=== PATIENT | female | born 1990 | race American Indian/Alaskan Native ===

== ENCOUNTER 2020-11-22 09:10 | Inpatient (IN) | payer MEDICAID ==
[2020-11-22] MEDS ORDERED: NALOXONE 0.4 MG/1 ML INJ IV PRN (09:56)
[2020-11-22] MEDS ORDERED: ePHEDrine SULFATE 50 MG/1 ML INJ IV PRN ×2 (09:56→21:08)
[2020-11-22] MEDS ORDERED: BUTORPHANOL 2 MG/1 ML INJ IV PRN ×2 (09:56)
[2020-11-22] MEDS ORDERED: LIDOCAINE (2%) 20 MG/1 ML VIAL 20 ML MDV INFILTRATI ONE (09:56)
[2020-11-22] MEDS ORDERED: PROMETHAZINE 25 MG TAB PO PRN (09:56)
[2020-11-22] MEDS ORDERED: fentaNYL 100 MCG/2 ML INJ IV PRN (09:56)
[2020-11-22] MEDS ORDERED: ONDANSETRON 4 MG/2 ML INJ IV PRN (09:56)
[2020-11-22] MEDS ORDERED: TERBUTALINE 1 MG/1 ML INJ SUB-Q PRN (09:56)
[2020-11-22] MEDS ORDERED: MINERAL OIL 30 ML ORAL LIQD PO PRN (09:56)
[2020-11-22] MEDS ORDERED: OXYTOCIN DRIP 30 UNITS/500 ML BAG IV SCH ×2 (10:00)
[2020-11-22] MEDS ORDERED: AMPICILLIN/NS 2 GM/100 ML 2 GM/100 ML BAG IV ONE (10:00)
[2020-11-22] MEDS ORDERED: miSOPROStol 25 MCG TAB VG ONE (10:56)
[2020-11-22] MEDS: LACTATED RINGERS 1,000 ML IV SCH ×2 (11:50→16:42)
[2020-11-22 11:59] LABS: Hematocrit 32.4 % (30.3-42.9); Hemoglobin 10.8 gm/dl (10.1-14.3); Mean Corpuscular HGB Conc 33 % (30-34); Mean Corpuscular Volume 88 fl (79-97); Platelet Count 230 K/mm3 (140-440); Red Blood Count 3.69 M/mm3 (3.65-5.03); Red Cell Distribution Width 14.1 % (13.2-15.2)
--- NOTE | 2020-11-22 13:43 | History and Physical Report ---
History of Present Illness Date of examination: 11/22/20 Date of admission: 11/22/20 09:10 Chief complaint: Induction for post dates History of present illness: 30 yo at 41w0d EGA who presents for induction of labor for post dates. She denies regular contractions, leakage of fluid or vaginal bleeding. She endorses good movement. She received care from [facility]. Her course is uncomplicated. She is GBS positive. Past History Past Medical History: no pertinent history Past Surgical History: no surgical history Family/Genetic History: diabetes - Obstetrical History Expected Date of Delivery: 11/15/20 Actual Gestation: 41 Week(s) 0 Day(s) : 3 Para: 1 Hx # Term Pregnancies: 1 Number of Pregnancies: 0 Spontaneous Abortions: 0 Induced : 1 Number of Living Children: 1 Medications and Allergies Allergies Allergy/AdvReac Type Severity Reaction Status Date / Time No Known Allergies Allergy Verified 11/04/13 12:10 Home Medications Medication Instructions Recorded Confirmed Last Taken Type Acetaminophen [Tylenol] 1,000 mg PO Q6HR PRN 11/23/13 11/23/13 11/22/13 10:00 History 1000 Lidocain2.5%/Prilocai2.5% [Emla] 5 gm TP ONCE #1 tube 11/23/13 Unknown Rx Pnv,Calcium 72/Iron,Carb/Folic 1 tab PO DAILY 11/23/13 11/23/13 11/21/13 14:00 History [ Plus Iron Tablet] 1 Active Meds: Active Medications Butorphanol Tartrate (Butorphanol 2 Mg/1 Ml Inj) 1 mg IV Q2H PRN PRN Reason: Pain, Moderate(4-6) LABOR PAIN Butorphanol Tartrate (Butorphanol 2 Mg/1 Ml Inj) 2 mg IV Q2H PRN PRN Reason: Pain , Severe (7-10) Ephedrine Sulfate (Ephedrine Sulfate 50 Mg/1 Ml Inj) 10 mg IV Q2M PRN PRN Reason: Hypotension Fentanyl (Fentanyl 100 Mcg/2 Ml Inj) 100 mcg IV Q2H PRN PRN Reason: Pain,Severe (7-10) LABOR PAIN Oxytocin/Sodium Chloride (Pitocin/Ns 30 Unit/500ml) 30 units in 500 mls @ 2 mls/hr IV TITR LUCINDA; Protocol Lactated Ringer's (Lactated Ringers) 1,000 mls @ 125 mls/hr IV DIRECT LUCINDA Last Admin: 11/22/20 11:50 Dose: 125 mls/hr Documented by: Oxytocin/Sodium Chloride (Pitocin/Ns 30 Unit/500ml) 30 units in 500 mls @ 40 mls/hr IV TITR LUCINDA; Protocol Ampicillin Sodium (Ampicillin/Ns 1 Gm/50 Ml) 1 gm in 50 mls @ 100 mls/hr IV Q4H LUCINDA; Protocol Mineral Oil (Mineral Oil 30 Ml Oral Liqd) 30 ml PO QHS PRN PRN Reason: Constipation Naloxone HCl (Naloxone 0.4 Mg/1 Ml Inj) 0.1 mg IV Q2MIN PRN PRN Reason: Res Rate </= 8 or 02 SAT < 92% Ondansetron HCl (Ondansetron 4 Mg/2 Ml Inj) 4 mg IV Q8H PRN PRN Reason: Nausea And Vomiting Promethazine HCl (Promethazine 25 Mg Tab) 25 mg PO Q6H PRN PRN Reason: Nausea And Vomiting Terbutaline Sulfate (Terbutaline 1 Mg/1 Ml Inj) 0.25 mg SUB-Q ONCE PRN PRN Reason: Hyperstimulation/Hypertonicity Review of Systems All systems: negative Genitourinary: no vaginal bleeding, no leakage of fluid, no contractions - Vital Signs Vital signs: Vital Signs Temp Pulse Resp BP Pulse Ox 98.1 F 101 H 16 120/73 98 11/22/20 10:20 11/22/20 10:20 11/22/20 10:11/22/20 10:11/22/20 10:20 Temp Pulse Resp BP Pulse Ox 98.1 F 96 H 16 120/73 98 11/22/20 10:11/22/20 10:22 11/22/20 10:11/22/20 10:11/22/20 10:21 - Physical Exam Abdomen: Positive: normal appearance, soft. Negative: distention, tenderness, guarding Uterus: Positive: normal size, enlarged (gravid), normal contour - Obstetrical FHR: auscultation normal, category 1 Uterine Contraction Monitor Mode: External Uterine Contraction Pattern: Regular Uterine Contraction Intensity: Mild Results Result Diagrams: 11/22/20 11:40 All other labs normal. Assessment and Plan A: 30yo at 1w0d EGA Presents for induction of labor GBS positive Membranes intact P: Admit to L&D Cytotec q4 hrs Ampicillin prophylaxis Pain relief as requested Anticipate
[2020-11-22] MEDS: AMPICILLIN/NS 1 GM/50 ML 1 GM/50 ML BAG IV SCH ×3 (14:01→22:21)
[2020-11-22] MEDS ORDERED: MORPHINE 2 MG/1 ML INJ IM ONE (19:24)
[2020-11-22] MEDS ORDERED: MORPHINE 2 MG/1 ML INJ IV ONE (19:24)
[2020-11-22] MEDS ORDERED: miSOPROStol 25 MCG TAB VG SCH (20:00)
--- NOTE | 2020-11-22 21:07 | Anesthesia Consultation ---
Anesthesia Consult and Med Hx Date of service: 11/22/20 - Airway Anesthetic Teeth Evaluation: Good Mental/Hyoid Distance: Adequate Mallampati Class: Class II Intubation Access Assessment: Probably Good - Pulmonary Exam CTA: Yes - Cardiac Exam Cardiac Exam: RRR - Pre-Operative Health Status ASA Pre-Surgery Classification: ASA2 Proposed Anesthetic Plan: Epidural - Pulmonary Hx Smoking: No Hx Asthma: No Hx Respiratory Symptoms: No SOB: No COPD: No Home Oxygen Therapy: No Hx Pneumonia: No Hx Sleep Apnea: No - Cardiovascular System Hx Hypertension: No Hx Coronary Artery Disease: No Hx Heart Attack/AMI: No Hx Angina: No Hx Percutaneous Transluminal Coronary Angioplasty (PTCA): No Hx Cardia Arrhythmia: No Hx Pacemaker: No Hx Internal Defibrillator: No Hx Valvular Heart Disease: No Hx Heart Murmur: No Hx Peripheral Vascular Disease: No - Central Nervous System Hx Neuromuscular Disorder: No Hx Seizures: No CVA: No Hx Back Pain: No Hx Psychiatric Problems: No - Gastrointestinal Hx Ulcer: No Hx Gastroesophageal Reflux Disease: Yes - Endocrine Hx Renal Disease: No Hx End Stage Renal Disease: No Hx Cirrhosis: No Hx Liver Disease: No Hx Insulin Dependent Diabetes: No Hx Non-Insulin Dependent Diabetes: No Hx Thyroid Disease: No Hx Hypothyroidism: No Hx Hyperthyroidism: No - Hematic Hx Anemia: No Hx Sickle Cell Disease: No - Other Systems Hx Alcohol Use: No Hx Substance Use: No Hx Cancer: No Hx Obesity: Yes
[2020-11-22] MEDS ORDERED: NALOXONE 2 MG/2 ML INJ IV PRN (21:08)
--- NOTE | 2020-11-22 21:08 | Progress Note ---
Labor Epidural - Labor Epidural Start Time: 21:21 Stop Time: 21:28 Performed by:: AURORA SOL Procedure: Patient is requesting a laboring epidural for laboring pain. Patient IDed, H&P reviewed, all questions and concerns were answered, and consent was signed. Timeout was performed at bedside. Patient in sitting position. Sterile prep and drape was performed. [3] ml of 1% lidocaine skin wheal at L[3]- L [4]. 18- gauge Tuohy epidural needle was advanced to loss of resistance with air technique 7cm. Negative CSF negative blood. Epidural catheter advanced to [12] centimeters. [NEGATIVE] Aspiration [NEGATIVE] test dose. Sterile dressing applied. Patient tolerated procedure.
[2020-11-22] MEDS ORDERED: fentaNYL-BUPIV 2 MCG/ML-0.125% 200 MCG/100 ML BAG EPIDURAL SCH (22:00)
[2020-11-22] MEDS ORDERED: OXYTOCIN 10 UNIT/1 ML INJ ONE (23:12)
--- NOTE | 2020-11-22 23:44 | Procedure Note ---
OB Delivery Note - Delivery Date of Delivery: 11/22/20 Surgeon: BALDEV MCNULTY (Eliana Shepard, [facility]) Estimated blood loss: 200cc - Vaginal Delivery presentation: vertex Delivery position: OA Intrapartum events: mult. late decelerations, mult.variable deceleratio, shoulder dystocia ([id number], resolved with knee to chest, suprapubic pressure, and extraction of posterior (right) arm) Delivery induction: misoprostol Delivery augmentation: rupture of membranes Delivery monitor: external FHT, external uterine Route of delivery: Delivery placenta: spontaneous (multiple calcifications) Delivery cord: nuchal cord (tight, somersaulted through), 3 umbilical vessels Delivery laceration: none Anesthesia: epidural Delivery comments: Maternal effort progressed to of viable male infant over intact perineum at 2321. Head delivered OA, manual restitution to ROT. Shoulder dystocia lasting 1 min 35 sec, resolved with knee-chest, suprapubic pressure, and extraction of posterior (right) arm. Cord immediately clamped and cut, handed to NICU team. Apgars 2/7/9, cord gas collected. Placenta delivered spontaneously and intact, 3VC, multiple calcifications noted. EBL 200cc. Fundus firm. Weight 8lb 15oz. No lacerations noted. - Infant A at 1 minute: 2 at 5 minutes: 7 Gender: Male
[2020-11-23] MEDS ORDERED: PROMETHAZINE 25 MG RECT SUPP PR PRN (00:08)
[2020-11-23] MEDS ORDERED: LANOLIN/ZINC/DIMETHICONE (LANSINOH) 7 GM TP PRN (00:08)
[2020-11-23] MEDS ORDERED: ONDANSETRON 4 MG/2 ML INJ IV PRN (00:08)
[2020-11-23] MEDS ORDERED: PROMETHAZINE 25 MG TAB PO PRN (00:08)
[2020-11-23] MEDS ORDERED: diphenhydrAMINE 25 MG CAP PO PRN (00:08)
[2020-11-23] MEDS ORDERED: WITCH HAZEL/ GLYCERIN PAD TP PRN (00:08)
[2020-11-23] MEDS ORDERED: MAGNESIUM HYDROXIDE (MOM) ORAL LIQD UDC PO PRN (00:08)
--- NOTE | 2020-11-23 00:32 | Post Anesthesia Evaluation ---
- Post Anesthesia Evaluation Patient Participated: Yes Airway Patent: Yes Stable Respiratory Function: Yes Nausea/Vomiting: No Temp > 96.8F: Yes Pain Manageable: Yes Adequeate Hydration: Yes Anesthesia Complications: No Block Receding Appropriately: Yes Patient on Ventilator: No
[2020-11-23] MEDS: IBUPROFEN 600 MG TAB PO SCH ×3 (01:59→14:47)
--- NOTE | 2020-11-23 15:50 | Progress Note ---
Assessment and Plan A: PPD#1 s/p at term P: Routine care Subjective - Subjective Date of service: 11/23/20 Principal diagnosis: s/p at term Interval history: Pt reports cramping this morning since she started . Otherwise no complaints. Patient reports: appetite normal, voiding normally, pain well controlled : doing well Objective - Vital Signs Latest vital signs: Vital Signs Temp Pulse Resp BP BP Pulse Ox 11/23/20 12:49 98.6 F 82 18 120/74 99 11/23/20 08:35 97.6 F 110 H 18 132/81 99 11/23/20 03:55 98.4 F 98 H 20 117/62 99 11/23/20 01:59 18 11/23/20 01:04 109 H 97 11/23/20 00:59 120 H 131/79 98 11/23/20 00:54 111 H 98 11/23/20 00:49 101 H 97 11/23/20 00:44 100 H 131/75 98 11/23/20 00:39 101 H 98 11/23/20 00:34 101 H 97 11/23/20 00:30 102 H 20 120/68 100 11/23/20 00:29 104 H 123/72 98 11/23/20 00:24 108 H 98 11/23/20 00:19 101 H 98 11/23/20 00:15 101 H 18 118/70 98 11/23/20 00:14 104 H 120/69 99 11/23/20 00:10 102 H 116/70 11/23/20 00:09 108 H 98 11/23/20 00:00 100 H 20 114/72 98 11/22/20 23:45 103 H 18 120/64 99 11/22/20 23:30 98.9 F 105 H 18 116/70 98 11/22/20 22:32 113 H 118/58 11/22/20 22:26 114 H 135/59 11/22/20 22:23 103 H 108/55 11/22/20 22:17 112 H 136/64 11/22/20 22:14 120 H 120/59 11/22/20 22:11 136/61 11/22/20 22:08 110 H 117/57 11/22/20 22:05 93 H 119/59 11/22/20 22:02 102 H 128/58 11/22/20 21:59 114 H 137/64 11/22/20 21:56 111 H 106/64 11/22/20 21:52 108/63 11/22/20 21:49 90 108/63 11/22/20 21:47 98 H 113/64 11/22/20 21:43 103 H 109/60 11/22/20 21:40 106 H 105/56 11/22/20 21:38 112 H 114/59 11/22/20 21:37 108 H 99 11/22/20 21:35 117 H 121/57 11/22/20 21:32 109 H 121/56 96 11/22/20 21:29 113 H 129/63 11/22/20 21:27 115 H 95 11/22/20 21:22 107 H 98 11/22/20 21:17 112 H 99 11/22/20 21:11 113 H 92 11/22/20 21:09 50 L 82 L 11/22/20 21:06 107 H 99 11/22/20 21:01 127 H 95 11/22/20 20:56 112 H 96 11/22/20 20:51 107 H 95 11/22/20 20:46 94 H 97 11/22/20 20:41 100 H 96 11/22/20 20:36 101 H 96 11/22/20 20:31 102 H 96 11/22/20 20:26 104 H 97 11/22/20 20:21 114 H 94 11/22/20 20:15 101 H 97 11/22/20 20:10 100 H 96 11/22/20 20:09 96 H 93 11/22/20 20:05 94 H 95 11/22/20 20:04 89 92 11/22/20 20:00 97.8 F 106 H 18 134/85 98 11/22/20 19:55 88 96 11/22/20 19:50 106 H 134/85 98 11/22/20 19:35 105 H 97 11/22/20 19:30 107 H 98 11/22/20 19:25 109 H 100 11/22/20 19:20 102 H 98 11/22/20 19:15 90 98 11/22/20 19:10 99 H 97 11/22/20 19:05 102 H 98 11/22/20 19:00 106 H 98 Intake and Output 11/23/20 11/23/20 11/23/20 06:59 14:59 22:59 Intake Total 240 Balance 240 Intake: Oral 240 Other: Total, Intake Amount 240 Estimated Blood Loss 200 - Exam Breasts: Present: deferred Abdomen: Present: soft Uterus: Present: normal, fundal height at umbilicus Extremities: Present: normal - Labs Labs: Abnormal lab results 11/23/20 Range/Units 13:41 Hgb 10.0 L (10.1-14.3) gm/dl Hct 30.0 L (30.3-42.9) %
[2020-11-23] MEDS: HYDROcodone/ACETAMINOPHEN 5-325 MG TAB PO PRN ×2 (16:41→23:57)
[2020-11-24] MEDS: HYDROcodone/ACETAMINOPHEN 5-325 MG TAB PO PRN ×3 (04:14→20:23)
[2020-11-24] MEDS: IBUPROFEN 600 MG TAB PO SCH ×2 (09:20→17:45)
[2020-11-24] MEDS ORDERED: BENZOCAINE/MENTHOL 20/0.5% TOP SPRAY 56 GM TP PRN (14:44)
--- NOTE | 2020-11-24 15:02 | Progress Note ---
Assessment and Plan A: PPD#2 s/p at term P: Routine care Discharge today Subjective - Subjective Date of service: 11/24/20 Principal diagnosis: s/p at term Interval history: Pt feels well today and is looking forward to going home. Patient reports: appetite normal, voiding normally, pain well controlled, ambulating normally : doing well Objective - Vital Signs Latest vital signs: Vital Signs Temp Pulse Resp BP BP Pulse Ox 11/24/20 08:37 97.8 F 106 H 18 113/67 97 11/24/20 00:55 97.9 F 103 H 20 107/58 97 11/23/20 16:55 98.4 F 100 H 18 123/71 97 Intake and Output 11/24/20 11/24/20 11/24/20 06:59 14:59 22:59 Intake Total 480 Balance 480 Intake: Oral 480 Other: Total, Intake Amount 120 - Exam Abdomen: Present: soft Uterus: Present: fundal height at umbilicus Extremities: Present: edema (trace)
--- NOTE | 2020-11-24 15:05 | Discharge Summary ---
Providers - Providers Date of Admission: 11/22/20 09:10 Date of discharge: 11/24/20 Attending physician: RIMMA NEWBERRY Primary care physician: RIMMA NEWBERRY Hospitalization Reason for admission: induction of labor Delivery: Procedure details: Please see delivery note Episiotomy: none Laceration: none Other procedures: none complications: none Discharge diagnosis: IUP at term delivered [place] baby: male Hospital course: Pt was admitted for induction of labor. She underwent a vaginal delivery which she tolerated well. Her course was uncomplicated and she met discharge criteria on PPD#2. She will follow up in 2 wks at [facility]. Condition at discharge: Stable Disposition: - TO HOME OR SELFCARE - Discharge Diagnoses (1) Term of male Status: Acute (2) Morbid obesity Status: Acute Plan - Discharge Medications Prescriptions: Ferrous Sulfate [Feosol 325 MG tab] 325 mg PO BID #60 tablet Ibuprofen [Motrin] 800 mg PO Q8HR PRN #30 tablet PRN Reason: Pain, Moderate (4-6) HYDROcodone/APAP 5-325 [[place] 5/325] 1 each PO Q6HR PRN #30 tablet PRN Reason: Pain - Provider Discharge Summary Activity: routine, no sex for 6 weeks, no heavy lifting 4 weeks, no strenuous exercise Diet: routine Instructions: routine Additional instructions: [] Smoking cessation referral if applicable(refer to patient education folder for contact #) [] Refer to [facility]'s [facility] Booklet Call your doctor immediately for: * Fever > 100.5 * Heavy vaginal bleeding ( >1 pad per hour) * Severe persistent headache * Shortness of breath * Reddened, hot, painful area to leg or breast * Drainage or odor from incision. * Keep incision clean and dry at all times and follow doctor's instructions regarding bathing/showering - Follow up plan Follow up: [facility] [Advanced Practice Nurse] - 14 Days (Please schedule a appt )
[2020-11-24 17:38] VITALS: BP 132/84
== END 2020-11-24 23:15 | disposition home or self-care (01) | DRG 775 ==
LOC: LD 09:10 → OB 11-23 03:36
PROVIDERS: ADMIT Obstetrics & Gynecology; ATTEND Obstetrics & Gynecology
PROC: 3E033VJ Introduction of Other Hormone into Peripheral Vein, Percutaneous Approach (ICD-10-PCS; principal; 2020-11-22)
PROC: 10E0XZZ Delivery of Products of Conception, External Approach (ICD-10-PCS; 2020-11-22)
PROC: 3E0R3BZ Introduction of Anesthetic Agent into Spinal Canal, Percutaneous Approach (ICD-10-PCS; 2020-11-22)
PROC: 00HU33Z Insertion of Infusion Device into Spinal Canal, Percutaneous Approach (ICD-10-PCS; 2020-11-22)
DX: O99.824 Streptococcus B carrier state complicating childbirth (principal); Z20.822 Contact with and (suspected) exposure to COVID-19; O99.213 Obesity complicating pregnancy, third trimester; E66.01 Morbid (severe) obesity due to excess calories; O66.0 Obstructed labor due to shoulder dystocia; O76 Abnormality in fetal heart rate and rhythm complicating labor and delivery; Z37.0 Single live birth; Z79.899 Other long term (current) drug therapy
CPT/HCPCS: 36415; 85014; 85018; 85027; 86592; 86850; 86900; 86901; G0378; J0290; J0595; J2270; J7120; Q0177; U0003